=== PATIENT | female | born 1965 | race Caucasian/White ===

== ENCOUNTER → 2017-05-09 | Outpatient (CLI) | payer MEDICARE, MEDICAID ==
--- NOTE | 2017-05-10 16:17 | MAM ---
EXAM DESCRIPTION: Screening Mammogram,Bilateral CLINICAL HISTORY: 52 yearsFemaleSCREENING. No complaints. Sister with breast cancer. Postmenopausal. Has taken hormone replacement.. COMPARISON: 2-D digital screening bilateral study 04/11/2016. Report from prior examination also reviewed. TECHNIQUE: Bilateral CC and MLO projection and LM/ML full-field images, spots 2-D digital screening mammographic technique. CAD was utilized. FINDINGS: The breast parenchymal density pattern is: Almost entirely fatty. Scattered areas of fibroglandular density. Heterogeneously dense breast tissue, which may obscure small masses. Extremely dense breast tissue, which lowers the sensitivity of mammography. No skin thickening or nipple retraction bilateral intramammary lymph nodes. Bilateral solitary microcalcifications. No focal, stellate mass or density, focal asymmetry , and no suspicious microcalcifications bilaterally. Stable mammograms compared to the prior study in 2015. IMPRESSION: BI-RADS CATEGORY: 2 - BENIGN FINDINGS. FOLLOW UP: Routine digital bilateral screening, one year interval from May 2017. Written communication explaining the IMPRESSION and follow-up, will be mailed to the patient and referring health care provider. According to the [employer], yearly mammograms are recommended starting at age 40 and continuing as long as a woman is in good health. Any breast change noted on a breast self-exam should be reported promptly to the patient's healthcare provider. Breast MRI is recommended for women with an approximately 20-25% or greater lifetime risk of breast cancer, including women with a strong family history of breast or ovarian cancer and women who have been treated for Hodgkin's disease. A negative mammographic report should not delay tissue diagnosis in patients with significant clinical history or physical findings. Extremely dense breast tissue limits the sensitivity of digital mammography. Electronically signed by: Tigre Peña MD 05/10/2017 4:15 PM CDT
== END | disposition home or self-care (01) ==
LOC: MAMMO 11:42
PROVIDERS: ATTEND Obstetrics & Gynecology
DX: Z12.31 Encounter for screening mammogram for malignant neoplasm of breast (principal)

== ENCOUNTER → 2018-06-03 | Outpatient (CLI) | payer MEDICARE, MEDICAID ==
--- NOTE | 2018-06-04 16:53 | MAM ---
EXAM DESCRIPTION: 3D Screening BILATERAL : Digital Mammography. CLINICAL HISTORY: 53 years Female SCREENING . No complaints or personal history of breast cancer. Sister with breast cancer. Mother with cervical cancer. Postmenopausal x4 years. Has taken HRT... Lifetime risk of developing breast cancer (Tyrer-Cuzick model)(%): 15.0. COMPARISON: 2-D digital screening bilateral mammography 05/09/2017. TECHNIQUE: Bilateral CC and MLO projection full-field images, Digital tomosynthesis mammographic technique. Bilateral digital 2-D full-field MLO images. CAD not utilized. FINDINGS: The breast parenchymal density pattern is: Heterogeneously dense breast tissue, which may obscure small masses. No skin thickening or nipple retraction. Question of slight enlargement of the mass density in the superior middle third of the right breast, 11:00 position. The posterior lateral third of the left breast is not well demonstrated on the current study compared to the prior study and the MLO images. IMPRESSION: BI-RADS CATEGORY: 0 - INCOMPLETE- Need additional imaging evaluation. FOLLOW-UP: Recall for additional imaging: Full-field tomosynthesis CC image of the left breast. Full-field MLO image of the right breast. Targeted right breast ultrasound of the region of interest. Diagnostic digital imaging of indicated by ultrasound.. Written communication concerning the IMPRESSION and Follow-up, will be mailed to the patient and referring health care provider. Electronically signed by: Tigre Peña MD 06/04/2018 4:51 PM CDT
== END ==
LOC: MAMMO 12:30
PROVIDERS: ATTEND Obstetrics & Gynecology
DX: Z12.31 Encounter for screening mammogram for malignant neoplasm of breast (principal)

== ENCOUNTER → 2018-08-12 | Outpatient (CLI) | payer MEDICARE, MEDICAID ==
--- NOTE | 2018-08-12 18:12 | US ---
EXAM DESCRIPTION: Breast,Right: Ultrasound CLINICAL HISTORY: 53 yearsFemaleabn mammo COMPARISON: Digital diagnostic tomosynthesis bilateral breasts on this visit. No prior breast ultrasound. TECHNIQUE: Transcutaneous scanning of the right breast utilizing egan-scale and Doppler modes. Scanning performed by the section supervisor and Dr. Peña. Technically difficult study due to patient motion from cerebral palsy. FINDINGS: Scanning of the middle third of the upper outer quadrant of the right breast. Mostly fatty echotexture with scattered islands of fibroglandular tissue. A circumscribed hypoechoic mass measuring 5.4 x 5.3 mm is present with a echogenic center. Nonvascular. Consistent with a lymph node. A second hypoechoic mass with central echogenicity measures 10.7 x 3.4 mm. Not vascular. No dominant solid mass or distinct cyst. No parenchymal edema or large calcifications. No overlying skin changes. No abnormal vascularity. IMPRESSION: 1. Bi-Rads Category 2: Benign. 2. Please refer to bilateral diagnostic digital breast tomosynthesis examination and report today. The FINDINGS and the FOLLOW-UP plan were reviewed in person with the patient after the examination. Written communication explaining the IMPRESSION and FOLLOW-UP will be mailed to the patient and referring care provider. Electronically signed by: Tigre Peña MD 08/12/2018 6:11 PM GEOGRAPHIC INFORMATION SYSTEM SURVEYOR
--- NOTE | 2018-08-13 16:15 | MAM ---
EXAM DESCRIPTION: 3D Diagnostic, Bilateral: Digital Mammography CLINICAL HISTORY: 53 yearsFemaleABNORMAL MAMMO mass density enlarging in the right breast. Repeating left breast images for better lateral and posterior breast visualization COMPARISON: Bilateral screening digital breast tomosynthesis 06/03/2018. Targeted right breast ultrasound included with this examination.. TECHNIQUE: Right breast MLO and ML full-field projection digital tomosynthesis. Left breast medial lateral and CC projection full-field images, digital mammographic tomosynthesis technique. CAD not utilized. FINDINGS: The breast parenchymal density pattern is: Scattered areas of fibroglandular density. No skin thickening or nipple retraction focal asymmetry versus mass density appears stable in the middle third of the right breast at the 11:00 position approximately 7 cm from the nipple. No new abnormal microcalcifications. No mass or density, focal asymmetry, or abnormal calcifications in the left breast. Ultrasound: Scanning of the middle third of the upper outer quadrant of the right breast. Mostly fatty echotexture with scattered islands of fibroglandular tissue. A circumscribed hypoechoic mass measuring 5.4 x 5.3 mm is present with a echogenic center. Nonvascular. Consistent with a lymph node. A second hypoechoic mass with central echogenicity measures 10.7 x 3.4 mm. Not vascular. No dominant solid mass or distinct cyst. No parenchymal edema or large calcifications. No overlying skin changes. No abnormal vascularity. IMPRESSION: Benign exam. BIRAD CATEGORY: 2 BENIGN FINDINGS. RECOMMENDATIONS: FOLLOW UP: Return to routine digital bilateral mammographic screening. Schedule for May 2019 Written communication explaining the IMPRESSION and follow-up, will be mailed to the patient and referring health care provider. According to the [employer], yearly mammograms are recommended starting at age 40 and continuing as long as a woman is in good health. Any breast change noted on a breast self-exam should be reported promptly to the patient's healthcare provider. Breast MRI is recommended for women with an approximately 20-25% or greater lifetime risk of breast cancer, including women with a strong family history of breast or ovarian cancer and women who have been treated for Hodgkin's disease. A negative mammographic report should not delay tissue diagnosis in patients with significant clinical history or physical findings. Extremely dense breast tissue limits the sensitivity of digital mammography. Electronically signed by: Tigre Peña MD 08/13/2018 4:13 PM POLISH MAKER
== END ==
LOC: US 13:00
PROVIDERS: ATTEND Obstetrics & Gynecology
DX: R92.2 Inconclusive mammogram (principal); R92.8 Other abnormal and inconclusive findings on diagnostic imaging of breast
CPT/HCPCS: 76641; 77066; G0279

== ENCOUNTER → 2019-01-02 | Outpatient (CLI) | payer MEDICARE, MEDICAID ==
--- NOTE | 2019-01-02 20:05 | MRI ---
EXAM DESCRIPTION: Brain w/o Contrast: MRI. CLINICAL HISTORY: SEIZURE COMPARISON: MRI scan of the cervical spine on the same visit. TECHNIQUE: Multiplanar, high-field MRI unit, multiple diffusion sequences, multiple conventional sequences without contrast. Minimal image degradation due to patient motion, anxiety. FINDINGS: Normal FLAIR and T2-weighted signal in the periventricular white matter and egan-white matter junctions of the cerebral hemispheres. . No hemorrhage, no cerebral edema, no mass-effect. No diffusion restriction. Normal signal in the bilateral basal ganglia. No diffusion restriction. Normal signal in the brainstem and cerebellar hemispheres. No hemorrhage, no parenchymal edema, no mass-effect. No diffusion restriction. Concordance of the diffusion and non-diffusion sequences with no diffusion restriction. Cortical sulci, ventricles, and other CSF spaces, and the subdural spaces are normally configured for patients age. No effacement or displacement. No midline shift. No extra-axial hemorrhage. Normal flow signal void in the major vessels of the [place], and the venous sinuses. IACs are symmetric bilaterally. No fluid signal in the bilateral mastoid air cells. No mass effect in the bilateral cerebellopontine angles. Pituitary gland occupies most of the sella. Base of the cerebellar tonsils is at the level of the foramen magnum. Diffuse fluid in the right maxillary antrum. Right septal deviation more posterior than anterior with mass effect on the right nasal passageway.. The bony calvarium is intact. IMPRESSION: 1. Technically difficult study due to patient motion. No hemorrhage, no edema, no mass effect, no midline shift. No extra-axial hemorrhage. 2. Normal noncontrast MRI diffusion study with no evidence of significant ischemia or acute or subacute infarction. 3. Acute sinusitis right maxillary antrum. Marked septal deviation with mass effect on the right nasal passageway. Electronically signed by: Tigre Peña MD 01/02/2019 8:03 PM CDT
--- NOTE | 2019-01-02 20:26 | MRI ---
EXAM DESCRIPTION: Cervical Spine: MRI. CLINICAL HISTORY: 53 years Female RADICULOPATHY COMPARISON: MRI scan of the brain without gadolinium IV contrast. TECHNIQUE: Multiplanar, high-field MRI, multiple sequences, non-contrast Cervical spine.. Technically difficult study due to patient motion. FINDINGS: C3-C4: Disc desiccation with disc space preserved. Trace retrolisthesis. Posterior broad-based 3 mm bulge abutting the cord. Right uncinate spur with moderate neural foraminal narrowing. Mild left neural foraminal narrowing. Mild left facet arthrosis. C4-C5: Moderate disc space loss and disc desiccation. Anterior bulging with endplate ridging. Posterior bulging abutting the cord. Posterior thickened flavum ligaments. Bilateral uncinate spurs. Moderate to severe right neural foraminal narrowing and left neural foraminal stenosis. AP canal diameter 8 mm. Bilateral facet arthrosis more on the left. C5-C6: Diffuse disc space loss disc desiccation with anterior bulging. Posterior broad-based disc bulge abutting the cord. Bilateral uncinate spurs larger on the right. Moderate to severe right neural foraminal stenosis. Right T1 and T2 circumscribed signal in the C5 vertebral body most likely a hemangioma. AP canal diameter 9 mm. No significant facet arthrosis. C6-C7: Diffuse disc space loss with disc desiccation. Anterior disc bulge and endplate ridging. Posterior broad-based disc osteophyte complex encroaching on the cord with AP canal diameter 8 mm. Uncinate spur and severe right neural foraminal stenosis. Left uncinate spur and moderate neural foraminal narrowing. Posterior ligament thickening. Bilateral facet arthrosis more on the right. C7-T1: disc desiccation with disc space minimally decreased. Grade 1 anterolisthesis 2 mm. Posterior broad-based disc bulge. Bilateral uncinate spurs. Moderate right neural foraminal narrowing and mild neural foraminal narrowing on the left. Bilateral facet arthrosis. T1-T2: Normal signal in the disc with disc space maintained. Normal alignment. Bilateral neural foramina and canal are patent. Mild to moderate right facet arthrosis. Normal signal in the C2-C3 with no bulging. Disc spaces preserved. Canal and neural foramina are patent. Facet joints unremarkable. Spinal alignment normal mild lordosis. No cord compression or cord edema. Atlantoaxial joint mild hypertrophy.. Base of the cerebellar tonsils is above the foramen magnum. Paravertebral soft tissues difficult to evaluate due to motion artifact.. Vertebral bodies are not compressed at any level. Normal marrow signal in the remaining vertebral bodies and the posterior elements. IMPRESSION: 1. Multiple levels of facet arthrosis, uncinate spur formation, spondylosis, bulging disc, and thickened posterior ligaments. 2. Left neural foraminal stenosis at C4-C5 with uncinate spur and mild central canal stenosis. Moderate to severe right neural foraminal narrowing. Posterior disc bulge. 3. Posterior broad-based C5-C6 disc bulge. Moderate to severe right neural foraminal stenosis with large uncinate spur. 4. Posterior broad-based disc osteophyte complex encroaching on the cord. Mild central canal stenosis. Large right uncinate spur and right neural foraminal stenosis. 5. Grade 1 anterolisthesis C7-T1. Moderate right neural foraminal narrowing and canal narrowing. Electronically signed by: Tigre Peña MD 01/02/2019 8:23 PM CDT
== END ==
LOC: MRI 11:00
PROVIDERS: ATTEND Psychiatry & Neurology Neurology
DX: G40.219 Localization-related (focal) (partial) symptomatic epilepsy and epileptic syndromes with complex partial seizures, intractable, without status epilepticus (principal); M47.22 Other spondylosis with radiculopathy, cervical region; M50.10 Cervical disc disorder with radiculopathy, unspecified cervical region; M48.02 Spinal stenosis, cervical region; M43.12 Spondylolisthesis, cervical region; M46.02 Spinal enthesopathy, cervical region; J01.00 Acute maxillary sinusitis, unspecified; J34.2 Deviated nasal septum

== ENCOUNTER → 2019-08-10 | Outpatient (CLI) | payer MEDICARE, MEDICAID ==
--- NOTE | 2019-08-11 20:40 | MAM ---
EXAM DESCRIPTION: 3D Screening BILATERAL : Digital Mammography. CLINICAL HISTORY: 54 years Female ANNUAL SCREENING . No complaints or personal history of breast cancer. Female sibling with breast cancer at age 61. Menarche age 17. No childbirth. Menopause age 53. No HRT.. Lifetime risk of developing breast cancer (Tyrer-Cuzick model)(%): 14.7. COMPARISON: Bilateral screening digital breast tomosynthesis May 2018. Diagnostic breast tomosynthesis August 2018 with right breast directed ultrasound.. TECHNIQUE: Bilateral CC and MLO projection full-field images, digital tomosynthesis mammographic technique. Bilateral digital 2-D full-field MLO images. CAD not available for tomosynthesis or 2-D images. FINDINGS: The breast parenchymal density pattern is: Heterogeneously dense breast tissue, which may obscure small masses.. Stable lymph node upper outer quadrant middle third right breast. Right axillary lymph nodes. No new focal, stellate mass or density, focal asymmetry , and no suspicious microcalcifications bilaterally. Stable mammograms compared to prior study. IMPRESSION: Benign exam. BIRAD CATEGORY: 2 BENIGN FINDINGS. RECOMMENDATIONS: FOLLOW UP: Routine digital bilateral mammographic screening, one year interval from August 2019. Written communication explaining the IMPRESSION and follow-up, will be mailed to the patient and referring health care provider. According to the [employer], yearly mammograms are recommended starting at age 40 and continuing as long as a woman is in good health. Any breast change noted on a breast self-exam should be reported promptly to the patient's healthcare provider. Breast MRI is recommended for women with an approximately 20-25% or greater lifetime risk of breast cancer, including women with a strong family history of breast or ovarian cancer and women who have been treated for Hodgkin's disease. A negative mammographic report should not delay tissue diagnosis in patients with significant clinical history or physical findings. Extremely dense breast tissue limits the sensitivity of digital mammography. Electronically signed by: Tigre Peña MD 08/11/2019 8:38 PM HEARING STENOGRAPHER
== END ==
LOC: MAMMO 11:31
PROVIDERS: ATTEND Obstetrics & Gynecology
DX: Z12.31 Encounter for screening mammogram for malignant neoplasm of breast (principal)

== ENCOUNTER 2020-09-18 10:16 | Emergency (ER) | payer MEDICARE, MEDICAID ==
--- NOTE | 2020-09-18 10:19 | ED.PDOC ---
History of Present Illness - General Stated Complaint: Difficulty breathing, positive COVID-19 Time Seen by Provider: 09/18/20 10:18 Source: patient, family - History of Present Illness Initial Comments: Patient's niece reports positive Covid test yesterday. She has been short of breath since 5 AM this morning. Saturation was 86% at home. Patient denies chest pain. She has had diarrhea for 3 days. She has had fever for a day or 2. Patient was placed on a prescription of azithromycin and tapering steroid pack a day or 2 ago. She does not have any pre-existing pulmonary disease. She does have cerebral palsy. Timing/Duration: 4-6 hours Severity: severe Improving Factors: rest Worsening Factors: movement Associated Symptoms: other - Diarrhea Allergies/Adverse Reactions: Allergies NO KNOWN ALLERGY Allergy (Verified 09/18/20 10:35) Home Medications: Ambulatory Orders Ascorbic Acid [Vitamin C] 500 mg PO DAILY 09/18/20 Calcium 600 mg PO DAILY 09/18/20 Cholecalciferol [Vitamin D3] 50 mcg PO DAILY 09/18/20 Gabapentin 600 mg PO BID 09/18/20 Losartan Potassium 50 mg PO DAILY 09/18/20 Lysine HCl [Lysine] 500 mg PO DAILY 09/18/20 Multiple Vitamin [Multivitamin] 1 tab PO DAILY 09/18/20 Omeprazole 20 mg PO DAILY 09/18/20 Pramipexole Dihydrochloride [Pramipexole Dihydrochlori] 1 mg PO BID 09/18/20 Sertraline HCl [Zoloft] 100 mg PO DAILY 09/18/20 Review of Systems - Review of Systems Constitutional: States: chills, fever EENTM: States: no symptoms reported Respiratory: States: see HPI, cough, short of breath Cardiology: States: no symptoms reported Gastrointestinal/Abdominal: States: no symptoms reported Genitourinary: States: no symptoms reported Musculoskeletal: States: no symptoms reported Skin: States: no symptoms reported Neurological: States: no symptoms reported Endocrine: States: no symptoms reported Hematologic/Lymphatic: States: no symptoms reported Unable to Obtain Due To: condition - Patient is unable to give a history due to her current and pre-existing condition and history and review of systems were obtained from her niece. 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 She is currently on high flow nasal cannula with saturations of 91%. 09/18/20 11:[address] Bell, ER attending physician at [facility] in [place] at 11:36 AM: Will accept patient for ICU bed transfer. Family members advised of plan and disposition arrangements to be made. There are amenable to transfer because [facility] does not have the required ICU resources which will be needed for this patient. 09/18/20 13:00 EMS is present in the emergency department and ready to transport the patient. Risk versus benefit of transportation versus remaining at this facility was discussed in detail with the EMS personnel. Snow was falling but is expected to become much heavier later. The roads are slick but possible at this time. The patient has a high risk for deterioration as she is early in the course of her Covid symptoms. If the patient were to stay here and deteriorate, requiring endotracheal intubation, transport would be absolutely mandatory and would be done under worsening conditions. After careful consideration decision was made to continue on with proposed transport for ICU care at [facility] in [place]. Family has been notified and concurs with decisions made. Medical decision making 55-year-old female with a history of cerebral palsy presenting with shortness of breath and hypoxemia after recently positive COVID- 19 test. Patient presented with very low oxygen on room air which is improved with high flow humidified nasal oxygen. BiPAP was considered but not performed because the patient was sufficiently stabilized without it. This patient does present a high risk for deterioration which could include the use of BiPAP or invasive respiratory intervention. Patient is to be transferred for ICU care at [facility] in [place]. - Results/Orders Results/Orders: 10:50 AM Discussed with respiratory therapist: On full flush oxygen mask SaO2 up to about 97%. On 15 L SaO2 dropped to 92%. Decision to initiate BiPAP and transfer patient for ICU care made at this time. Ativan 1 mg ordered IV. Remdesivir and Decadron to follow. Call is being placed to other facility for ICU care. EXAMINATION: Chest,1 View. HISTORY: 55 years Female. Short of breath, positive Covid. . . TECHNIQUE: XR CHEST 1 VIEW COMPARISON: None. FINDINGS: Limited examination due to prominent soft tissue attenuation. No radiographically visible pneumothorax or pleural effusion. No acute displaced fracture. Cardiac silhouette size slightly enlarged. Multifocal bilateral pulmonary infiltrates are noted in the mid and lower lungs, more on the right. Distribution is predominantly peripheral. Infiltrates are interstitial, groundglass, and partially consolidated. IMPRESSION: Bilateral pulmonary infiltrates may be secondary to edema and/or atelectasis. Differential includes viral or bacterial pneumonia. While not specific, this appearance can be seen with Covid-19 pneumonia. Slight cardiomegaly Echocardiogram, normal sinus rhythm, 95/min, normal tracing. 09/18/20 10:30 BLOOD CULTURE Stat 09/18/20 10:33 Oxygen Delivery Assessment: QSHIFT 09/18/20 10:36 Remdesivir 200 mg Sodium Chloride 0.9% 250Ml [NS 250ml] 250 ml IVPB ONCE 09/18/20 10:52 Azithromycin IV [Zithromax IV] 500 mg Sodium Chloride 0.9% 250Ml [NS 250ml] 250 ml IVPB ONCE 09/18/20 10:54 B-TYPE NATRIURETIC PEPTIDE/BNP Stat C-REACTIVE PROTEIN Stat CARDIAC ENZYME GROUP Stat COMPLETE METABOLIC PROFILE Stat FERRITIN Stat LD-L/LDH Stat MAGNESIUM Stat D-DIMER,QUANTITATIVE Stat FIBRINOGEN Stat PARTIAL THROMBOPLASTIN TIME Stat PROTHROMBIN TIME Stat 09/18/20 11:15 EKG STAT 09/18/20 11:23 KCl 20 Meq/Ns [NS W/ KCL 20 meq/Liter] 1,000 ml IVS .QD Laboratory Results - last 24 hr 09/18/20 09/18/20 09/18/20 10:33 10:54 10:54 WBC 12.1 H RBC 4.16 L Hgb 12.7 Hct 37.9 MCV 91.1 MCH 30.5 MCHC 33.4 RDW 13.1 Plt Count 213 MPV 9.9 Absolute Neuts (auto) 11.20 H Absolute Lymphs (auto) 0.40 L Absolute Monos (auto) 0.60 Absolute Eos (auto) 0.00 Absolute Basos (auto) 0.00 Neutrophils % 92.2 H Lymphocytes % 2.9 L Monocytes % 4.8 Eosinophils % 0.0 L Basophils % 0.1 D-Dimer, Quantitative pCO2 33 pO2 56 L HCO3 23.2 ABG pH 7.460 H ABG O2 Saturation 90.7 L ABG Base Excess 0.0 ABG Deoxyhemoglobin 9.1 H Oxyhemoglobin % 89.2 L Carboxyhemoglobin % 0.7 Methemoglobin % Sat 1.0 Calc Total Hemoglobin 13.2 Sodium 145 Potassium 2.9 L Chloride 110 Carbon Dioxide 22 Anion Gap 15.9 Lactic Acid Calcium 8.7 CK-MB (CK-2) 5.7 H* Troponin I < 0.02 B-Natriuretic Peptide 113.0 H 09/18/20 09/18/20 10:54 11:01 WBC RBC Hgb Hct MCV MCH MCHC RDW Plt Count MPV Absolute Neuts (auto) Absolute Lymphs (auto) Absolute Monos (auto) Absolute Eos (auto) Absolute Basos (auto) Neutrophils % Lymphocytes % Monocytes % Eosinophils % Basophils % D-Dimer, Quantitative 708.0 H* pCO2 pO2 HCO3 ABG pH ABG O2 Saturation ABG Base Excess ABG Deoxyhemoglobin Oxyhemoglobin % Carboxyhemoglobin % Methemoglobin % Sat Calc Total Hemoglobin Sodium Potassium Chloride Carbon Dioxide Anion Gap Lactic Acid 2.1 Calcium CK-MB (CK-2) Troponin I B-Natriuretic Peptide Vital Signs - 24 hr 09/18/20 09/18/20 09/18/20 10:16 10:17 10:48 Temperature 100.4 F H Pulse Rate [ 115 H 115 H Pulse ox] Respiratory 28 H 28 H Rate Blood Pressure 133/80 [R leg] O2 Sat by Pulse 71 L 91 L Oximetry 09/18/20 11:26 Temperature Pulse Rate [ Pulse ox] Respiratory Rate Blood Pressure [R leg] O2 Sat by Pulse 91 L Oximetry Vital Signs - 24 hr 09/18/20 09/18/20 09/18/20 10:16 10:17 10:48 Temperature 100.4 F H Pulse Rate [ 115 H 115 H Pulse ox] Respiratory 28 H 28 H Rate Blood Pressure 133/80 [R leg] O2 Sat by Pulse 71 L 91 L Oximetry 09/18/20 09/18/20 11:26 11:30 Temperature Pulse Rate [ 68 Pulse ox] Respiratory 22 Rate Blood Pressure 113/73 [R leg] O2 Sat by Pulse 91 L 91 L Oximetry Departure - Departure Clinical Impression: Respiratory distress, Hypoxemia, Pneumonia, COVID-19 Disposition: Transfer to Hospital Referrals: Stevie Rodriguez MD [Primary Care Provider] - 1-2 Weeks Home Medications: Ambulatory Orders Ascorbic Acid [Vitamin C] 500 mg PO DAILY 09/18/20 Calcium 600 mg PO DAILY 09/18/20 Cholecalciferol [Vitamin D3] 50 mcg PO DAILY 09/18/20 Gabapentin 600 mg PO BID 09/18/20 Losartan Potassium 50 mg PO DAILY 09/18/20 Lysine HCl [Lysine] 500 mg PO DAILY 09/18/20 Multiple Vitamin [Multivitamin] 1 tab PO DAILY 09/18/20 Omeprazole 20 mg PO DAILY 09/18/20 Pramipexole Dihydrochloride [Pramipexole Dihydrochlori] 1 mg PO BID 09/18/20 Sertraline HCl [Zoloft] 100 mg PO DAILY 09/18/20 Transfer to Outside Facility - Transfer Information Decision to Transfer Date: 09/18/20 Decision to Transfer Time: 10:49 Reason for Transfer: specialized care not available
[2020-09-18] MEDS ORDERED: REMDESIVIR 200 MG in SODIUM CHLORIDE 0.9% 250ML 250 ML IVPB ONE (10:36)
[2020-09-18] MEDS ORDERED: DEXAMETHASONE INJ 10 MG/ML VIAL IV ONE (10:37)
[2020-09-18] MEDS ORDERED: cefTRIAXone SODIUM 1 GM in SODIUM CHL 0.9% 50ML MIN-BAG+ 50 ML IVPB ONE (10:51)
[2020-09-18] MEDS ORDERED: AZITHROMYCIN IV 500 MG in SODIUM CHLORIDE 0.9% 250ML 250 ML IVPB ONE (10:52)
--- NOTE | 2020-09-18 11:14 | RAD ---
EXAMINATION: Chest,1 View. HISTORY: 55 years Female. Short of breath, positive Covid. . . TECHNIQUE: XR CHEST 1 VIEW COMPARISON: None. FINDINGS: Limited examination due to prominent soft tissue attenuation. No radiographically visible pneumothorax or pleural effusion. No acute displaced fracture. Cardiac silhouette size slightly enlarged. Multifocal bilateral pulmonary infiltrates are noted in the mid and lower lungs, more on the right. Distribution is predominantly peripheral. Infiltrates are interstitial, groundglass, and partially consolidated. IMPRESSION: Bilateral pulmonary infiltrates may be secondary to edema and/or atelectasis. Differential includes viral or bacterial pneumonia. While not specific, this appearance can be seen with Covid-19 pneumonia. Slight cardiomegaly Electronically signed by: Robert Foster MD 09/18/2020 11:12 AM [facility]
[2020-09-18] MEDS ORDERED: ACETAMINOPHEN 325 MG TAB PO ONE (11:17)
[2020-09-18] MEDS ORDERED: KCL 20 MEQ/NS 1,000 ML IVS PRN (11:23)
[2020-09-18 14:17] VITALS: BP 126/103; TEMP 99.6; O2SAT 97
== END 2020-09-18 13:30 | disposition short-term general hospital (02) ==
LOC: ER 10:16
DX: U07.1 COVID-19 (principal); R06.03 Acute respiratory distress; R09.02 Hypoxemia; G80.9 Cerebral palsy, unspecified
CPT/HCPCS: 36415; 36600; 71045; 80053; 82550; 82553; 82728; 82803; 82805; 83605; 83615; 83735; 83880; 84484; 85025; 85379; 85384; 85610; 85730; 86140; 87040; 93005; 94760; J0456; J0696; J1100; J2060; J7050